=== PATIENT | female | born 1990 | race Caucasian/White ===

== ENCOUNTER 2021-02-04 19:44 | Emergency (ER) | payer MEDICAID ==
[~2021-02-04] VITALS: Ht 160 cm; Wt 97.5 kg
[2021-02-04 19:44] VITALS: BP_SYST 135
--- NOTE | 2021-02-04 20:00 | NUR ---
Patient to ER bed 2 to gown for evaluation. Side rails up. Report given to SOWMYA MALCOLM.
--- NOTE | 2021-02-04 20:03 | NUR ---
DR. BALDERAS AT BEDSIDE FOR EVALUATION.
--- NOTE | 2021-02-04 20:08 | NUR ---
Pt came into ER with complaint of left lower quadrant cramping abdominal pain 3/10 Xtoday with light spotting. Pt is currently 6 weeks today and had a ectopic in November. Pt is AAOX4 speaking full sentences. [facility]ing [facility].
--- NOTE | 2021-02-04 20:12 | NUR ---
Lab at bedside.
--- NOTE | 2021-02-04 20:30 | NUR ---
Patient transported to radiology via wheelchair, accompanied by tech.
[2021-02-04 20:43] LABS: CALCIUM 9.2 mg/dL (8.4-11.0); CREATININE 0.9 mg/dL (0.55-1.30); POTASSIUM 3.9 mmol/L (3.5-5.1)
--- NOTE | 2021-02-04 20:50 | NUR ---
Pt back from Ultrasound.
[2021-02-04 20:55] LABS: BASOPHILS % (AUTO) 0.4 % (0.0-2.0); EOSINOPHILS # (AUTO) 0.1 K/uL (0.0-0.4); HEMATOCRIT 39.7 % (36-48); HEMOGLOBIN 13.5 g/dL (12.0-16.0); LYMPHOCYTES # (AUTO) 3.9 K/uL (1.0-5.5); LYMPHOCYTES % (AUTO) 35.6 % (20.5-51.5); MEAN CORPUSCULAR HEMOGLOBIN 30 pg (27-31); MEAN CORPUSCULAR HGB CONC 34 % (32-36); MEAN CORPUSCULAR VOLUME 88 fL (79.0-98.0); MONOCYTES # (AUTO) 0.8 K/uL (0.0-1.0); MONOCYTES % (AUTO) 7.5 % (1.7-9.3); NEUTROPHILS # (AUTO) 6.1 K/uL (1.8-7.7); NEUTROPHILS % (AUTO) 55.5 % (40.0-70.0); PLATELET COUNT (AUTO) 284 K/uL (130-430); RED BLOOD CELL COUNT(AUTO) 4.51 MIL/uL (4.2-6.2); RED CELL DISTRIBUTION WIDTH 14.4 % (9.0-15.0); WHITE BLOOD COUNT (AUTO) 10.9 K/uL (4.8-10.8)
[2021-02-04 21:09] LABS: ALBUMIN 3.9 g/dL (3.4-4.8); TOTAL BILIRUBIN 0.3 mg/dL (0.0-1.0)
--- NOTE | 2021-02-04 21:40 | NUR ---
Patient given written and verbal discharge instructions and verbalizes understanding. ER MD discussed with patient the results and treatment provided. Patient in stable condition. ID arm band removed. Rx of given. Patient educated on pain management and to follow up with PMD. Pain Scale 0/10. Opportunity for questions provided and answered. Medication side effect fact sheet provided.
[2021-02-04 21:42] VITALS: BP_SYST 135
== END 2021-02-04 21:40 | disposition home or self-care (01) ==
LOC: SED 19:44
DX: O20.9 Hemorrhage in early pregnancy, unspecified (principal); Z3A.01 Less than 8 weeks gestation of pregnancy
CPT/HCPCS: 36415; 76801; 76817; 80053; 81025; 84702; 85025; 99284

== ENCOUNTER 2021-02-21 15:26 | Inpatient (IN) | payer MEDICAID, SELFPAY ==
[~2021-02-21] VITALS: Ht 160 cm; Wt 100.2 kg
[2021-02-21 15:38] VITALS: BP_SYST 129
--- NOTE | 2021-02-21 15:38 | NUR ---
Placed in room 06 . Placed on vehicle monitor technician, blood pressure machine and pulse oximeter. To gown for exam. Side rails up. Report given to SOWMYA Chang
[2021-02-21] MEDS ORDERED: METOCLOPRAMIDE HCL 10 MG/2 ML VIAL IVP ONE (15:45)
[2021-02-21] MEDS ORDERED: DIPHENHYDRAMINE INJ 50 MG/ML VIAL IVP ONE (15:45)
[2021-02-21] MEDS ORDERED: NACL 0.9% 1,000 ML IV ONE ×2 (15:45→17:00)
--- NOTE | 2021-02-21 16:08 | NUR ---
PT COMES TO ER WITH C/O HYPEREMESIS SINCE LAST NIGHT. G-4.P-2, LMP-DEC 29,IS 8 WEEKS . WAS DIAGNOSED WITH HYPEREMESIS GRAVIDARUM 2 WEEKS GO BY HER OB-GLUING PRESSMAN. DENIES DYSURIA/HEMATURIA NO ABDOMINAL PAIN. REPORTS AN ECTOPIC OCTOBER 2020. PT IN NAD , RESP EVEN AND UNLABORED, ON RA @98%.
[2021-02-21 16:36] LABS: BASOPHILS # (AUTO) 0.1 K/uL (0.0-0.2); BASOPHILS % (AUTO) 0.4 % (0.0-2.0); EOSINOPHILS % (AUTO) 0.1 % (0.0-4.0); HEMATOCRIT 40.1 % (36-48); HEMOGLOBIN 14.2 g/dL (12.0-16.0); LYMPHOCYTES # (AUTO) 1.5 K/uL (1.0-5.5); LYMPHOCYTES % (AUTO) 11.8 % (20.5-51.5); MEAN CORPUSCULAR HEMOGLOBIN 31 pg (27-31); MEAN CORPUSCULAR HGB CONC 35 % (32-36); MEAN CORPUSCULAR VOLUME 88 fL (79.0-98.0); MONOCYTES # (AUTO) 0.5 K/uL (0.0-1.0); MONOCYTES % (AUTO) 3.7 % (1.7-9.3); NEUTROPHILS # (AUTO) 10.9 K/uL (1.8-7.7); PLATELET COUNT (AUTO) 280 K/uL (130-430); RED BLOOD CELL COUNT(AUTO) 4.55 MIL/uL (4.2-6.2); WHITE BLOOD COUNT (AUTO) 12.9 K/uL (4.8-10.8)
[2021-02-21 16:53] LABS: ANION GAP 11 (5-15); CALCIUM 9.6 mg/dL (8.4-11.0); CHLORIDE 98 mmol/L (98-107); CREATININE 0.77 mg/dL (0.55-1.30); GLUCOSE 93 mg/dL (70-99); POTASSIUM 3.7 mmol/L (3.5-5.1); SODIUM SERUM 134 mmol/L (136-145); UREA NITROGEN, BLOOD 13 mg/dL (8-21)
[2021-02-21 16:57] LABS: GFR AFRICAN AMERICAN 112 mL/min (>90)
[2021-02-21 16:59] LABS: ALANINE AMINOTRANSFERASE 56 U/L (12-78); ALBUMIN 3.9 g/dL (3.4-4.8); ASPARTATE AMINOTRANSFERASE 18 U/L (10-37); LIPASE 175 U/L (73-393); TOTAL BILIRUBIN 0.5 mg/dL (0.0-1.0)
[2021-02-21 17:01] LABS: ACETONE, SERUM NEGATIVE (NEGATIVE)
--- NOTE | 2021-02-21 17:36 | NUR ---
FLUID CHALLENGE GIVEN, PT FAILED. VOMITTED LARGE AMOUNTS OF YELLOW FLUID.
[2021-02-21 18:57] LABS: BILIRUBIN,URINE NEGATIVE (NEGATIVE); BLOOD, URINE NEGATIVE (NEGATIVE); COLOR,URINE YELLOW (YELLOW); GLUCOSE,URINE NEGATIVE (NEGATIVE); KETONES,URINE 2+ (NEGATIVE); LEUKOCYTE ESTERASE ,URINE NEGATIVE (NEGATIVE); NITRITE, URINE NEGATIVE (NEGATIVE); PROTEIN URINE NEGATIVE (NEGATIVE); UROBILINOGEN,URINE 0.2 (0.2-1.0)
[2021-02-21] MEDS ORDERED: ONDANSETRON HCL 4 MG/2 ML VIAL IVP ONE (19:00)
[2021-02-21 19:08] LABS: CLARITY/URINE SLIGHTLY HAZY (CLEAR)
--- NOTE | 2021-02-21 19:18 | NUR ---
RECEIVED REPORT FROM STEPHANIE. PT STATING STILL FEELING NAUSEOUS. ADMINISTERED ZOFRAN 4MG IVP ORDERED. PT TOLERATING WELL.
[2021-02-21 19:54] LABS: BACTERIA,URINE FEW /HPF (None Seen); MUCUS,URINE 1+ /LPF (None Seen)
--- NOTE | 2021-02-21 20:00 | NUR ---
Medication reconciliation completed with information provided by PATIENT. Any prior medication reconciliation on file was reviewed and corrected.
--- NOTE | 2021-02-21 21:20 | NUR ---
Patient's code status is FULL CODE paperwork completed and placed in chart.
--- NOTE | 2021-02-21 23:19 | NUR ---
PT RESTING AT THIS TIME. BREATING UNLABORED AND EVEN. AWAITING FOR POMONA.
--- NOTE | 2021-02-22 00:25 | NUR ---
Patient will be admitted to care of LAM. Admitted to MED SURG OBS unit. ROOM REQUESTED, PENDING ASSIGNMENT. Belongings list completed. Complete and up to date summary report printed. SBAR report to be given at bedside with opportunity for questions.
[2021-02-22] MEDS ORDERED: METO-290 PO (00:31)
[2021-02-22] MEDS ORDERED: PYRI100T10 PO (00:31)
--- NOTE | 2021-02-22 02:22 | NUR ---
BED ASSIGNMENT GIVEN. PATIENT TO GO TO 100A.
--- NOTE | 2021-02-22 03:05 | NUR ---
Admission Note Received patient from ER with diagnosis of hyperemesis gravidarum. Initial Plan of Care discussed-patient verbalized understanding.Oriented to room, call light, pain management and safety.
[2021-02-22 03:10] VITALS: BP_SYST 119
[2021-02-22] MEDS: D5NS 1,000 ML IV SCH ×3 (03:33→19:31)
[2021-02-22] MEDS: ONDANSETRON HCL 4 MG/2 ML VIAL IVP PRN ×3 (03:33→12:14)
--- NOTE | 2021-02-22 03:33 | NUR ---
IV ADMINISTRATION START TIME (Observation Patients ONLY): IV infusion of D5NS 1,000 ML @ 80/HR started
--- NOTE | 2021-02-22 06:29 | NUR ---
CLOSING NOTES: Patient in bed, eyes closed, breathing evenly and nonlabored on room air, no s/s of distress. Patient has an IV on the LAC 20G, patent, benign, and flushing. No s/s of infection or infiltration. Will continue to monitor and endorse care to morning shift nurse. All needs met at this time. NPO followed.
[2021-02-22] MEDS: cefTRIAXone 1 GM in D5W 50 ML IV SCH (08:18)
[2021-02-22 08:23] VITALS: BP_SYST 110
--- NOTE | 2021-02-22 09:08 | NUR ---
CONSULT QM NURSE HYPEREMESIS GRAVIDARUM [facility] [phone] [facility]
[2021-02-22 09:31] LABS: BASOPHILS # (AUTO) 0.2 K/uL (0.0-0.2); EOSINOPHILS # (AUTO) 0.1 K/uL (0.0-0.4); EOSINOPHILS % (AUTO) 0.8 % (0.0-4.0); HEMATOCRIT 38.6 % (36-48); LYMPHOCYTES # (AUTO) 1.4 K/uL (1.0-5.5); LYMPHOCYTES % (AUTO) 16.7 % (20.5-51.5); MEAN CORPUSCULAR HEMOGLOBIN 30 pg (27-31); MEAN CORPUSCULAR HGB CONC 34 % (32-36); MEAN CORPUSCULAR VOLUME 90 fL (79.0-98.0); MONOCYTES # (AUTO) 0.4 K/uL (0.0-1.0); MONOCYTES % (AUTO) 5.2 % (1.7-9.3); NEUTROPHILS # (AUTO) 6.2 K/uL (1.8-7.7); NEUTROPHILS % (AUTO) 75.3 % (40.0-70.0); PLATELET COUNT (AUTO) 218 K/uL (130-430); RED BLOOD CELL COUNT(AUTO) 4.29 MIL/uL (4.2-6.2); RED CELL DISTRIBUTION WIDTH 14.8 % (9.0-15.0); WHITE BLOOD COUNT (AUTO) 8.2 K/uL (4.8-10.8)
--- NOTE | 2021-02-22 11:35 | NUR ---
Note Pt resting in bed with IVF's infusing well through IV site in LAC. No needs noted at this time. Call light within reach. Pt checked on q1' and PRN.
[2021-02-22 12:00] VITALS: BP_SYST 107
[2021-02-22 19:00] VITALS: BP_SYST 130
--- NOTE | 2021-02-22 19:15 | NUR ---
change of shift.pt.presents quiescent affect;calm,resting.pt.presents emesis;gravitas x3-4 days per-admission to hospital. no c/o pain.pt.presents iv access intact iv fluids infusing.pt.capable to reposition self/ambulate unassisted.general status stable.respiratory status stable;unlabored@room air.call light/telephone w/in access of the pt.
[2021-02-22 20:00] VITALS: BP_SYST 130
--- NOTE | 2021-02-22 20:00 | NUR ---
pt.assessed.v/s assessed values wnl.no c/o pain.pt.had requested medication;nausea.i have administered zofran;4mg ivp. to assess the efficacy of the medication per protocol.iv access intact iv fluids infusing.pt.capable to reposition self.call light/telephone w/in access of the pt.
--- NOTE | 2021-02-22 21:00 | NUR ---
no 2100p medications scheduled.pt.presents no c/o pain.nausea mitigated.call light/telephone w/in access of the pt.
--- NOTE | 2021-02-22 22:00 | NUR ---
pt.assessed.pt.presents quiescent affect;calm,somnolent.per flacc pain mgx pt.absent facial grimaces/body posturing. pt.capable to reposition self.iv access intact iv fluids infusing.call light/telephone w/in access of the pt.
[2021-02-23] VITALS: BP_SYST 122
--- NOTE | 2021-02-23 | NUR ---
pt.assessed.v/s assessed values wnl.no c/o pain.iv access intact iv fluids infusing.pt.requested medication;nausea.i have administered.zofran:4mg ivp;to as the efficacy of the medication per protocol.pt.capable to reposition self.call light/telephone w/in access of the pt.
[2021-02-23] MEDS: ONDANSETRON HCL 4 MG/2 ML VIAL IVP PRN ×4 (00:23→20:23)
--- NOTE | 2021-02-23 02:00 | NUR ---
pt.assessed.pt.presents quiescent affect;calm,somnolent.per flacc pain mgx pt.absent facial grimaces/body posturing. iv access intact iv fluids infusing.pt.capable to reposition self.call light/telephone w/in access of the pt.
--- NOTE | 2021-02-23 04:00 | NUR ---
pt.aSSESSED.PT.ReQUESTed MeDIcATION;NAUSEA.I HAVe ADminisTEReD ZOFRAN:4MG IVP.TO ASsEsse THE EFfICAcy of THe MEDIcAtIOn pER PrOTOCOL.NO C/O PaIN.PT.CAPaBLE TO REposition SElF.Iv FlUIDS INFUSING.cALl lIGHT/TELEPHONe W/In ACCESS OF THe PT.
[2021-02-23] MEDS: D5NS 1,000 ML IV SCH ×3 (04:25→18:18)
--- NOTE | 2021-02-23 07:30 | NUR ---
Opening note Patient is resting in bed A&O x4 no complaint of pain or discomfort, complains of pain at the IV site, D/C'd placed dressing, clean dry and intact. No signs or symptoms of respiratory distress. Educated Patient on plan of care, patient verbalized understanding. Bed is in lowest position call light within reach, fall and aspiration precautions are in place. Will continue to monitor.
[2021-02-23 08:00] VITALS: BP_SYST 107
--- NOTE | 2021-02-23 09:00 | NUR ---
IV RE-INSERTION: Complaining of pain to IV site. Restarted on Left forearm. Successful after1 attempt. Resumed current IVF of D5NS and regulated @ 120 per hour. Will observe for any signs of infiltration.
[2021-02-23] MEDS: METOCLOPRAMIDE HCL 10 MG/2 ML VIAL IVP PRN ×2 (09:44→18:18)
[2021-02-23] MEDS: cefTRIAXone 1 GM in D5W 50 ML IV SCH (09:44)
[2021-02-23 10:29] LABS: CALCIUM 9.4 mg/dL (8.4-11.0); CREATININE 0.73 mg/dL (0.55-1.30); POTASSIUM 3.3 mmol/L (3.5-5.1); THYROID STIMULATING HORMONE 0.01 uIu/mL (0.36-3.74)
--- NOTE | 2021-02-23 15:00 | NUR ---
rn note patient drank apple juice, tolerated well, no complaint of nausea or vomiting.
--- NOTE | 2021-02-23 15:40 | NUR ---
RN note Spoke with regarding patients labs, new orders received and placed.
--- NOTE | 2021-02-23 15:40 | NUR ---
Rn note Dr. Moseley recommends increasing diet as tolerated.
[2021-02-23 16:00] VITALS: BP_SYST 115
[2021-02-23] MEDS ORDERED: POTASSIUM CHLORIDE 20 MEQ/PKT PACKET PO ONE (16:00)
--- NOTE | 2021-02-23 18:31 | NUR ---
Closing note Patient is resting in bed A&O x4 no complaint of pain or discomfort, No signs or symptoms of respiratory distress. All needs were met. Bed is in lowest position call light within reach, fall and aspiration precautions are in place. Will endorse report to night stocker.
[2021-02-23 19:20] VITALS: BP_SYST 105
--- NOTE | 2021-02-23 19:25 | NUR ---
INITIAL NOTE AT INITIAL ASSESSMENT, PATIENT IS RESTING IN BED, STABLE, NO SIGNS OF RESPIRATORY DISTRESS. PATIENT VERBALIZES NO PAIN, SHE STATES HER NAUSEA IS TOLERABLE AT THIS TIME. PLAN OF CARE FOR THE EVENING IS COMMUNICATED WITH THE PATIENT. PATIENT DEMONSTRATES CORRECT USAGE OF CALL LIGHT AT THIS TIME. BED IS LOCKED, ALARMED, AND AT THE LOWEST LEVEL. FALL SAFETY EDUCATION PROVIDED. FALL, SAFETY, AND RESPIRATORY PRECAUTIONS WILL BE TAKEN THROUGHOUT THE SHIFT.
--- NOTE | 2021-02-23 20:20 | NUR ---
NAUSEA NOTE PATIENT IS COMPLAINING OF NAUSEA, SHE STATES SHE THREW UP A LITTLE RIGHT NOW JUST SMELLING CHICKEN BROTH AT BEDSIDE EVEN THOUGH SHE DID NOT DRINK IT. PRN MEDICATION WILL BE GIVEN AT THIS TIME FOR PATIENTS NAUSEA COMPLAINT PER MD ORDERS. WILL REASSESS IF PRN MEDICATION GIVEN WAS EFFECTIVE. CALL LIGHT PLACED WITHIN REACH. BED IS LOCKED, ALARMED, AND AT THE LOWEST LEVEL.
[2021-02-24 00:17] VITALS: BP_SYST 93
[2021-02-24] MEDS: METOCLOPRAMIDE HCL 10 MG/2 ML VIAL IVP PRN (02:50)
--- NOTE | 2021-02-24 02:50 | NUR ---
NAUSEA NOTE PATIENT IS COMPLAINING OF NAUSEA, PRN MEDICATION WILL BE GIVEN AT THIS TIME FOR PATIENTS NAUSEA COMPLAINT PER MD ORDERS. WILL REASSESS IF PRN MEDICATION GIVEN WAS EFFECTIVE. CALL LIGHT PLACED WITHIN REACH. BED IS LOCKED, ALARMED, AND AT THE LOWEST LEVEL.
[2021-02-24] MEDS: D5NS 1,000 ML IV SCH (02:51)
--- NOTE | 2021-02-24 06:35 | NUR ---
CLOSING NOTE PRN MEDICATION GIVEN TO PATIENT WAS EFFECTIVE FOR HER NAUSEA THROUGHOUT THE NIGHT. PATIENT SLEPT WELL THROUGHOUT THE SHIFT, NO SHORTNESS OF BREATH NOTED. AT THIS TIME, PATIENT IS RESTING IN BED, STABLE, NO SIGNS OF RESPIRATORY DISTRESS. CALL LIGHT IS WITHIN REACH. BED IS LOCKED, ALARMED, AND AT THE LOWEST LEVEL. FALL, SAFETY, AND RESPIRATORY PRECAUTIONS HAVE BEEN TAKEN THROUGHOUT THE SHIFT. WILL CONTINUE TO MONITOR UNTIL SHIFT REPORT IS GIVEN AT BEDSIDE TO AM NURSE.
[2021-02-24 08:00] VITALS: BP_SYST 133
--- NOTE | 2021-02-24 08:32 | NUR ---
CONSULTATION PAGED REASON FOR CONSULTATION:HYPERTHYROID WAS CONSULT CALLED?Y PERSON WHO WAS NOTIFIED:IRMA ARRIETA CONSULTING PHYSICIAN:IRMA ARRIETA [employer] SPECIALTY:[employer] PHONE NUMBER:[phone] REQUESTING PHYSICIAN:DR.SINGHAYLIN
[2021-02-24] MEDS ORDERED: POTASSIUM CHLORIDE 20 MEQ TAB.PRT.SR PO PRN (09:00)
[2021-02-24] MEDS: cefTRIAXone 1 GM in D5W 50 ML IV SCH (09:00)
[2021-02-24 11:22] VITALS: BP_SYST 109
--- NOTE | 2021-02-24 12:25 | NUR ---
PATIENT TOLERATING CL LIQ'S WELL. HAS TAKEN SEVERAL APPLE CUP'S OF APPLE JUICE WITH OUT BEING NAUSEATED. ABLE TO GET OUT OF BED AND SHOWER TOLERATING ACTIVITY WELL. PATIENT STATES SHE IS READY TO GO HOME. iv SITE LOST THIS AM AND LAB UNABLE TO DRAW LAB. INFORMED BY PRIMARY DOCTOR THAT SHE WILL NEED TO FOLLOW UP WITH OUT PATIENT LAB. WILL INSTRUCT PATIENT ON DISCHARGE ORDERS AT TIME OF DISCHARGE.
--- NOTE | 2021-02-24 14:00 | NUR ---
PATIENT ASSESSMENT UNCHANGED. LOW GRADE TEMP THIS AM. TOLERATING FOOD AND LIQ'S WELL. GETTING UP OUT OF BED WITH OUT DIFFICULT. NO LONGER EXPERIENCING [place]. MOTHER HERE PRIOR TO DISCHARGE. PRIMARY DR REPORTED PATIENT MAY GO HOME IF TOLERATING DIET FLUIDS WELL. IV INFILTRATED, LAB UNABLE TO DRAW AM LAB. INSTRUCTION'S PATIENT TO FOLLOW UP WITH [facility] TO CHECK REQUESTED LAB'S AND TO FOLLOW UP WITH OB DOCTOR. PATIENT SEEING DR ON MON. TO FOLLOW INSTRUCTION'S FROM OB DOCTOR. PATIENT READY TO GO DISCHARGE ORDER OBTAINED. ASSISTED OUT TO PERSONAL CAR AMBULATORY. [facility] JUST FEW MILES AWAY. IN [employer] [place] WAY [place].
[2021-02-24] MEDS ORDERED: CEPH500C2 PO (14:48)
[2021-02-24 14:58] VITALS: BP_SYST 116
--- NOTE | 2021-02-25 13:49 | NUR ---
disposition 01
== END 2021-02-24 15:40 | disposition home or self-care (01) | DRG 566 ==
LOC: SED 15:26 → SMU 02-22 00:25 → OBSVTOIN 02-23 10:23
PROVIDERS: ADMIT General Practice; ATTEND General Practice
DX: O21.0 Mild hyperemesis gravidarum (principal); O23.41 Unspecified infection of urinary tract in pregnancy, first trimester; N39.0 Urinary tract infection, site not specified; O99.211 Obesity complicating pregnancy, first trimester; O99.281 Endocrine, nutritional and metabolic diseases complicating pregnancy, first trimester; E05.90 Thyrotoxicosis, unspecified without thyrotoxic crisis or storm; Z20.822 Contact with and (suspected) exposure to COVID-19; Z3A.08 8 weeks gestation of pregnancy
CPT/HCPCS: 36415; 80048; 80053; 81000; 82009; 83690; 83735; 84443; 84702; 85025; 96361; 96374; 96375; 99285; G0378; J0696; J1200; J2405; J2765; J7060